=== PATIENT | female | born 1980 | race Caucasian/White ===

== ENCOUNTER → 2020-04-14 07:32 | Outpatient (CLI) | payer BC, SELFPAY ==
[2020-04-14 06:29] VITALS: BMI 19.6
[2020-04-14 09:14] LABS: Rheumatoid Factor < 10.0 IU/mL (<15)
[2020-04-15 17:27] LABS: ANTINUCLEAR ANTIBODIES DIRECT Negative (Negative)
== END ==
PROVIDERS: PCP Family Medicine; Referring Provider Internal Medicine Critical Care Medicine; Visit Provider Internal Medicine Critical Care Medicine
DX: R09.1 Pleurisy (principal); R91.1 Solitary pulmonary nodule
CPT/HCPCS: 36415; 86038; 86200; 86225; 86235; 86431; 87385

== ENCOUNTER 2024-02-01 07:52 | Day surgery (SDC) | payer OTHER, SELFPAY ==
--- NOTE | 2024-01-29 17:21 | PCM.HP.BLA ---
History and Physical Date of Admission: 02/01/24 HPI: The patient is a 43 year old female presenting for pre-operative visit. She is scheduled for hysteroscopy with endometrial ablation, for menorrhagia on 02/01/24. Procedure discussed along with risks, benefits and complications. Other alternatives discussed for management. Consent form signed? Yes. PAST MEDICAL HISTORY PAST MEDICAL HISTORY Diagnosis Date ? Hemorrhage of gastrointestinal tract, unspecified ? Internal hemorrhoids without mention of complication ? PMH - PAST MEDICAL HISTORY OF RECTAL PAIN AND BLEEDING ? Scoliosis ? Unspecified asthma(493.90) exercise induced, never used any medication prescribed PAST SURGICAL HISTORY PAST SURGICAL HISTORY Procedure Laterality Date ? ABDOMINOPLASTY 2008 ? BREAST AUGMENTATION W/PROSTHETIC IMPLANT 2008 ? BUNIONECTOMY, [place]-TYPE 12/2014 left foot ? ESOPHAGEAL DILATATION 04/21 ? SIGMOIDOSCOPY FLX DX W/COLLJ SPEC BR/WA IF PFRMD 01/22/07 CURRENT MEDICATIONS Current Outpatient Medications Medication Sig Dispense Refill ? progesterone micronized (PROMETRIUM) 200 mg capsule Take 1 capsule by mouth daily at bedtime. 14 capsule 1 ? fluconazole (DIFLUCAN) 150 mg tablet Take 1 tablet by mouth as directed. use one tablet, repeat in 4 days if needed to treat a vaginal yeast infection. 2 tablet 1 ? pantoprazole DR (PROTONIX) 20 mg tablet ? Olopatadine 0.2 % drop INSTILL ONE DROP IN EACH EYE ONCE A DAY NEEDED 4 ? FEXOFENADINE HCL (LAWANDA ORAL) Take by mouth. No current facility-administered medications for this visit. ALLERGIES: Anaprox [Naproxen Sodium] PERSONAL HISTORY: SOCIAL HISTORY Social History Tobacco Use ? Smoking status: Some Days Years: 12 Types: Cigarettes ? Smokeless tobacco: Never Vaping Use ? Vaping Use: Never used Substance Use Topics ? Alcohol use: Yes Comment: OCCASIONALLY, NOT WHILE ? Drug use: No FAMILY HISTORY: FAMILY HISTORY FAMILY HISTORY Problem Relation Age of Onset ? Skin Cancer Mother ? Hypertension Mother ? Emphysema Maternal Grandfather ? Diabetes Maternal Aunt ? Seizures Maternal Aunt ? Breast Cancer Maternal Aunt ? Hypertension Maternal Uncle ? Breast Cancer Other MGGM REVIEW OF SYMPTOMS: GENERAL: denies fevers or chills ENDOCRINOLOGY: has not been on steroids Cardiology : denies palpitations or chest pain Respiratory: denies SOB or cough Hematology: denies history of prolonged bleeding or easy bruising or VTE Allergy: Denies history of personal or family history of allergy to anesthesia PHYSICAL EXAMINATION: VITALS: Blood pressure 126/74, pulse 95, resp. rate 16, height 177.8 cm (5' 10), weight 64.4 kg (142 lb), last menstrual period 01/15/2024, SpO2 98%. GENERAL: The patient is well nourished, well hydrated in no acute distress. , The patient is oriented to time, place, and person. LUNGS: Clear to auscultation bilaterally. no wheezes, rhonchi or rales HEART: Regular rate and rhythm, Normal heart sounds, and No murmurs or gallops IMPRESSION: menorrhagia PLAN: The risks/benefits/alternatives and personal involved for the planned hysteroscopy with endometrial ablation were reviewed with the patient. Her questions were answered to her satisfaction and she desires to proceed. Consent was signed. I reviewed with her postop instructions and expectations. Reviewed risks associated w/ after ablation and that it is NOT contraception. She is aware. Plans vasectomy for contraception, another method until then I have reviewed and updated past medical and surgical history, medications and allergies Assessment & Plan Assessment/Plan (1) Menorrhagia: (2) Septate uterus:
[2024-02-01] VITALS (12 sets, daily range): BP systolic 111–132; BP diastolic 68–100; PULSE 75–83; RESP 16; TEMP 36.5–37.2; O2SAT 92–100; BMI 20.7
--- NOTE | 2024-02-01 | EMB_PTH ---
PATIENT: DWAYNE ALDRICH LOC: [facility] – [place] U#:[id number] AGE/SX: 43/F ROOM: RE02/01/[address]: Dr. Jelena Guzman MD : 1980 BED: DIS: 02/01/2024 SPEC #: [id number] RECD: 02/01/24 12:17 STATUS: MIRA CEE #: [id number] DBEORAH: 02/01/24 00:[address]: Jelena Guzman DEPT: SURGICAL PATHOLOGY RECD BY: Ollie Matson ENTERED: 02/01/24 12:18 SP TYPE: ENDOM BX/C DONNA DR: Dr. Willi House MD Tissues: Endometrium, NOS Procedures: Surgery Specimen Level IV HEADER OPERATION: Hysteroscopy, D&C, hydroablation, HTA device PRE-OP DIAGNOSIS: Menorrhagia, septate uterus TISSUE SUBMITTED: Endometrial curettings MICROSCOPIC DIAGNOSIS Endometrium, curettings: Disordered proliferative endometrium with focal glandular breakdown. AM/mr 02/02/2024 MICROSCOPIC DESCRIPTION Slides are reviewed. GROSS DESCRIPTION Received in fixative is one container labeled with the patient's name and designated Endometrial curettings. The specimen consists of multiple irregular fragments of light matta soft tissue that in aggregate measure 2.5 x 2.0 x 0.2 cm. The specimen is totally submitted in one cassette. / 02/01/2024 TC:5 CPT:65703
--- NOTE | 2024-02-01 08:17 | PCM.PRE.AN2 ---
ASA Classification* ASA Classification ASA Classification: 2 Assessment & Plan Anesthesia* Anesthesia Assessment Anesthesia Assessment: Discussed sedation and/or anesthesia options, risks, benefits, and alternatives with patient/parents/legal guardian/POA. Questions invited. The patient/parents/legal guardian/POA seems to understand and agrees to proceed with anesthesia plan. Reviewed the physical assessment, medical history, allergy history and patient home medications list prior to surgery/procedure/anesthetic and documented any changes. Performed airway and anesthesia risk assessments. 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 When Was Last Pacemaker Check QUESTION #4 FULL TEXT: You/Your Family Experience fever (hyperthermia) with Anesthesia Last Oral Intake Last Oral intake: Last Oral Intake NPO since Meds taken in AM with sips of water? Meds patient instructed to take am of surgery PONV PONV - aircraft armorer: PONV - aircraft armorer Female Yes 01/30/24 09:25 HX of Motion Sickness No 01/30/24 09:25 HX of N/V After Surgery No 01/30/24 09:25 Non-Smoker No 01/30/24 09:25 Duration of Surgery greater No 01/30/24 09:25 than 60 minutes Number of Risk Factors 1 01/30/24 09:25 PONV Score Low Risk 01/30/24 09:25 Height & Weight Height & Weight: Anesthesia: Height & Weight Weight: 64.41 kg 01/31/24 07:46 Respiratory Assessment Respiratory Assessment - aircraft armorer: Respiratory Tract Infection Hx - aircraft armorer Hx Respiratory Tract Infection No 01/30/24 09:25 STOP Sleep Apnea STOP Sleep Apnea - aircraft armorer: STOP Sleep Apnea - aircraft armorer Hx Hypertension No 01/30/24 09:25 Hx Sleep Apnea No 01/30/24 09:25 CPAP BIPAP Do you snore loudly (louder Yes 01/30/24 09:25 than talking or can be heard Do you often feel tired/ No 01/30/24 09:25 fatigued/ sleepy during daytime? Has anyone observed you stop No 01/30/24 09:25 breathing during sleep? STOP Results Negative 01/30/24 09:25 QUESTION #5 FULL TEXT : Do you snore loudly (louder than talking or can be heard through closed doors)? 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 Specify any problems Hx of Preganancy in last 3 No 01/30/24 09:25 Months Nurse Filling Out Transfusion DSCHRIBER 01/30/24 09:25 & Questions: Date: 01/30/24 01/30/24 09:25 Time: 09:26 01/30/24 09:25 Patient unable to answer at this time (ie. confused, unrespo /Reproduction History /Reproductive History - aircraft armorer: /Reproductive Hx- aircraft armorer Hx Now No 01/30/24 09:25 Gestational Age (in weeks): EDC: Hx Hx Para Hx Section SAB No 01/30/24 09:25 Active Medications Active Medications: Current Medications Generic Name Dose Route Start Last Admin Trade Name Freq PRN Reason Stop Dose Admin Acetaminophen 1,000 mg 02/01/24 09:35 Acetaminophen 500 Mg Tablet PO 02/01/24 09:36 PREOP ONE Ketorolac Tromethamine 30 mg 02/01/24 09:35 Ketorolac 30 Mg/Ml Syringe IV 02/01/24 09:36 PREOP ONE Anesthesia Focused Assessment* Airway Assessment Mouth opens: >3 cm Mallampati Score: II Focused Labs Anesthesia Preop lab: CBC CHEMISTRY COAG Review of Systems (Anesthesia) ROS Narrative System reviewed and no additional complaints, except as documented. [facility] Medical History Alcohol use History of steroid therapy Anemia DVT (deep venous thrombosis) Gastric reflux Smoker Anxiety Insomnia Pleuritis Home Medications ?Medication ?Instructions ?Recorded ?Last Taken ?Type montelukast 10 mg tablet 10 mg PO QHS 01/30/24 Unknown History pantoprazole 20 mg tablet,delayed 40 mg PO QDAY 01/30/24 Unknown History release Allergy/AdvReac Type Severity Reaction Status Date / Time naproxen Allergy unknown Verified 01/30/24 09:23 Family History Grandfather Cancer Liver Surgical History Hx of thumb surgery hx neuroma excision H/O toe surgery History of bunionectomy H/O breast augmentation Social History Smoking Status: Current every day smoker tobacco type: cigarettes Tobacco: How many years used: 24 alcohol intake: current alcohol intake frequency: holidays/special occasions only
[2024-02-01 08:39] LABS: Internal QC Validated? YES +Cl - CLEAR BKGD; Pregnancy, Urine Negative Negative; Record Kit Lot#,Urine Preg 772476
[2024-02-01] MEDS: Lactated Ringers 1,000 ML 15 ML IV (08:43)
[2024-02-01] MEDS: Acetaminophen 500 MG Tablet 1000 MG PO (08:44)
[2024-02-01] MEDS: Ketorolac 30 MG/ML Syringe IV (08:44)
[2024-02-01 09:04] LABS: Hemoglobin 8.6 g/dL (12.0-15.0); Mean Corp Hgb Conc 29.7 g/dL (32-36); Mean Corpuscular Hgb 23.8 pg (27.0-32.0); Mean Corpuscular Volume 80.3 fL (81-99); Mean Platelet Vol. 10.9 fl (6.2-12.0); Platelet Count 287 K/mm3 (150-450); RBC Distribution Width CV 17.2 % (11.6-14.6); RBC Distribution Width SD 49.8 fl (35.1-43.9); Red Blood Count 3.61 M/mm3 (4.2-5.4); White Blood Count 5.1 K/mm3 (4.4-11.0)
--- NOTE | 2024-02-01 09:53 | PCM.DC ---
Discharge Instructions Diet Discharge Diet: No restrictions Activity Discharge Activity: May Drive (02/02/24) and May Shower May resume sexual activity in: 1-2 weeks and 2 weeks Lifting Restrictions: none Dressing / Incision Call your doctor if your incision/area has: Sudden Increased Bleeding and Foul Smelling Discharge Call your doctor if you observe: Fever of 101 or Higher and Using more than 1 pad per hour (for 2 hrs in a row) Follow Up Care Please Follow Up With: Jelena Guzman MD When: as needed. Call [phone] or send a [employer] message to make an appointment or with any concerns. Test Results: Test results from this visit will be discussed in further detail at your follow-up appointment, if applicable. Discharge Plan Admission Attending Provider: Jelena Guzman Primary Care Provider: Willi House Instructions Print Language: Persian Discharge Orders/Prescriptions Prescriptions: No Action montelukast 10 mg tablet 10 mg PO QHS pantoprazole 20 mg tablet,delayed release (DR/EC) 40 mg PO QDAY Referrals / Follow Up: Willi House MD [Primary Care Provider] - Disposition Disposition (needs filled in before D/C Order can be placed): Home, Self Care
--- NOTE | 2024-02-01 09:56 | OP.PCM_ITS ---
Problems Associated Problem List Diagnoses (1) Septate uterus: (2) Menorrhagia: Report of Operation Date of Procedure: 02/01/24 Pre-Operative Diagnosis: menorrhagia Post-Operative Diagnosis: same Surgery/Procedure Performed:: Hysteroscopy D&C with endometrial ablation Description of Surgical Findings:: Normal cervix and vagina. Retroverted uterus. Lush endometrium. No focal endometrial abnormalities. Surgeon: rocky industrial engineering technician: None Type of Anesthesia: MAC/Supplemental/Local Anesthesiologist: Paige Dexter Special Medications: none Specimen's removed: endoemtrial curettings Drains: none Estimated Blood Loss (mL): 10 Fluids Replaced: 1000 mL Description of Procedure: The patient was taken to the OR where she was prepped and draped in dorsal lithotomy position. The weighted speculum was placed in the vagina and the anterior lip of the cervix was grasped with a single-tooth tenaculum. A paracervical block was administered with [1% lidocaine with 1-100,000 epinephrine solution]. The cervix was dilated serially with Hegar dilators. The HTA hysteroscope was placed into the uterine cavity and the above findings were noted. Bilateral tubal ostia [were] identified. The uterus sounded to [9]cm and the cervical length was [4]cm. The endometrial cavity length was [5]cm. The hysteroscope was removed. [A gentle sharp curettage was done of the uterine cavity. The specimen was handed off and sent to pathology.] The hydrothermal endometrial ablation device seated in the cervix to the level of the internal os and then pulled back several millimeters. The cervical seal balloon was inflated and safety cycle and cervical seal was confirmed by the HTA device. The tenaculum lock was placed. I could visualize the cervix and a wet sponge was placed in the posterior cul-de-sac. There is no leaking from the device or from the cervix. The ablation procedure was initiated and completed without interruption. The cooldown cycle was then completed without interruption. The entire cavity was white. The device was removed. The tenaculum was removed and the tenaculum site was noted to be hemostatic. All sponge and needle counts were correct. A vaginal sweep was performed by me. The patient was awakened and taken to the recovery room in stable condition. Hysteroscopic fluid deficit was 10 cc of normal saline. Grafts/Implants Used: none Procedure Start Time: 10:00 Procedure Stop Time: 10:24 Complications none Admit VTE Documentation VTE Present on Admission: No VTE Mechan Device Prophylaxis: SCD's VTE Pharm Prophylaxis ordered?: No Reason prophylaxis not ordered:: Procedure Not Indicated
[2024-02-01] MEDS: Lidocaine 1% /Epi 1:100 (20ml) 20 ML Vial (10:00)
--- NOTE | 2024-02-01 10:33 | PCM.POST.ANE ---
Anesthesia: Postop Eval I Current Vital Signs Temperature: 97.7 F Pulse Rate: 83 Blood Pressure: 111/75 Respiratory Rate: 16 Pulse Ox: 99 Oxygen Delivery Method: Room Air Assessment Airway patent: Yes Spontaneous unlabored respirations: Yes Mental status: Awake and Calm nausea: No Vomiting: No Anesthesia Complication: No Fluid Hydration Crystalloid volume administer (ml): 1,000 Total IV fluid infused: 1,000 Progress Note Anesthesia document: Postop Eval 1 completed: Yes
[2024-02-01] MEDS: HYDROmorphone 1 MG/ML Syringe IV (11:56)
[2024-02-01] MEDS: Lactated Ringers 1,000 ML 75 ML IV (12:14)
[2024-02-01] MEDS: Ketorolac 30 MG/ML Syringe IM (12:14)
[2024-02-01] MEDS: oxyCODONE 5 MG Tablet PO (12:47)
--- NOTE | 2024-02-01 13:17 | POSTOPAN2_ITS ---
Anesthesia Postop Eval I Sum Postop Eval Completion status Anesthesia document: Postop Eval 1 completed: Yes Anesthesia Postop Eval I Summary Anesthesia Postop Eval I Summary: Anesthesia Postop Eval I: Assessment Summary Airway patent Yes 02/01/24 10:34 MEETING MANAGER.GDOTT Spontaneous unlabored Yes 02/01/24 10:34 MEETING MANAGER.GDOTT respirations Mental status Awake,Calm 02/01/24 10:34 MEETING MANAGER.GDOTT nausea No 02/01/24 10:34 MEETING MANAGER.GDOTT Vomiting No 02/01/24 10:34 MEETING MANAGER.GDOTT Anesthesia Postop Eval I: Fluid Summary Crystalloid volume administer 1,000 02/01/24 10:34 MEETING MANAGER.GDOTT (ml) Colloids volume administered ( ml) Blood Product volume administered (ml) Total IV fluid infused 1,000 02/01/24 10:34 MEETING MANAGER.GDOTT Anesthesia Postop Eval I: Summary Notes Anesthesia Complication No 02/01/24 10:34 MEETING MANAGER.GDOTT Anesthesia Complication Comment: Post-operative progress note Anesthesia: Postop Eval II Evaluation Mental status: Awake Pain Level: 0 nausea: No Vomiting: No Complications Anesthesia Complication: No
--- NOTE | 2024-02-01 13:17 | PCM.POSTANE2 ---
Anesthesia Postop Eval I Sum Postop Eval Completion status Anesthesia document: Postop Eval 1 completed: Yes Anesthesia Postop Eval I Summary Anesthesia Postop Eval I Summary: Anesthesia Postop Eval I: Assessment Summary Airway patent Yes 02/01/24 10:34 PLASTIC AND RECONSTRUCTIVE SURGEON.GDOTT Spontaneous unlabored Yes 02/01/24 10:34 PLASTIC AND RECONSTRUCTIVE SURGEON.GDOTT respirations Mental status Awake,Calm 02/01/24 10:34 PLASTIC AND RECONSTRUCTIVE SURGEON.GDOTT nausea No 02/01/24 10:34 PLASTIC AND RECONSTRUCTIVE SURGEON.GDOTT Vomiting No 02/01/24 10:34 PLASTIC AND RECONSTRUCTIVE SURGEON.GDOTT Anesthesia Postop Eval I: Fluid Summary Crystalloid volume administer 1,000 02/01/24 10:34 PLASTIC AND RECONSTRUCTIVE SURGEON.GDOTT (ml) Colloids volume administered ( ml) Blood Product volume administered (ml) Total IV fluid infused 1,000 02/01/24 10:34 PLASTIC AND RECONSTRUCTIVE SURGEON.GDOTT Anesthesia Postop Eval I: Summary Notes Anesthesia Complication No 02/01/24 10:34 PLASTIC AND RECONSTRUCTIVE SURGEON.GDOTT Anesthesia Complication Comment: Post-operative progress note Anesthesia: Postop Eval II Evaluation Mental status: Awake Pain Level: 0 nausea: No Vomiting: No Complications Anesthesia Complication: No
== END 2024-02-01 13:03 | disposition home or self-care (01) ==
LOC: SDC 07:57 → AC 07:58
PROVIDERS: Anesthesiology; PCP Family Medicine; Referring Provider Obstetrics & Gynecology; Visit Provider Obstetrics & Gynecology
PROC: 0U5B8ZZ Destruction of Endometrium, Via Natural or Artificial Opening Endoscopic (ICD-10-PCS; CPT 58563; principal; 2024-02-01 09:20)
DX: N92.0 Excessive and frequent menstruation with regular cycle (principal); Q51.28 Other and unspecified doubling of uterus; F17.210 Nicotine dependence, cigarettes, uncomplicated; K21.9 Gastro-esophageal reflux disease without esophagitis; Z79.899 Other long term (current) drug therapy
CPT/HCPCS: 58563; 00952; 81025; 85027; 88305; J7120; J2405

== ENCOUNTER → 2024-08-21 | Outpatient (CLI) | payer OTHER, SELFPAY ==
[2024-08-21 12:14] LABS: Protein, Urine (Random) 6.3 mg/dL (<11.9); Protein:Creat Ratio 81 mg/g CRE (0-200)
[2024-08-21 12:37] LABS: Color, Urine Yellow (Yellow); Glucose, Dipstick Normal (Normal); Ketone-Dipstick Negative (Negative); Leukocyte Esterase-Dipstick Negative /ul (Negative); Nitrite-Dipstick Negative (Negative); Occult Blood-Urine 10 /ul (Negative); Protein-Dipstick Negative (Negative); Specific Gravity, Urine 1.015 (1.002-1.030); Urine Bilirubin Dipstick Negative (Negative); Urine Clarity Clear (Clear); Urine Urobilinogen Normal (Normal)
[2024-08-21 12:53] LABS: Erythrocyte Sedimentation Rate 2 mm/hr (0-30)
[2024-08-21 12:58] LABS: Absolute Lymphocyte Count 2.02 X10^3/uL (0.83-4.51); Basophil# 0.05 X10^3/uL; Basophil% 0.7 % (0-1); Eosinophil# 0.56 X10^3/uL; Eosinophils% 7.8 % (0-5); Hematocrit 38.5 % (37-47); Hemoglobin 11.9 g/dL (12.0-15.0); Lymphocyte # 2.02 X10^3/ul (0.83-4.51); Lymphocyte % 28.3 % (19-41); Mean Corp Hgb Conc 30.9 g/dL (32-36); Mean Corpuscular Hgb 26.7 pg (27.0-32.0); Mean Corpuscular Volume 86.3 fL (81-99); Mean Platelet Vol. 11.3 fl (6.2-12.0); NRBC Flagged by Analyzer 0 % (0-5); Neutrophil % 55.9 % (47-70); Platelet Count 276 K/mm3 (150-450); RBC Distribution Width CV 18.7 % (11.6-14.6); RBC Distribution Width SD 59.2 fl (35.1-43.9); Red Blood Count 4.46 M/mm3 (4.2-5.4); White Blood Count 7.2 K/mm3 (4.4-11.0)
[2024-08-21 13:12] LABS: Hepatitis B Surface Antibody Non-Reactive; Hepatitis B Surface Antigen Non-Reactive (Nonreactive); Hepatitis C Antibody Non-Reactive (Nonreactive)
[2024-08-21 17:34] LABS: ALB/GLOB Ratio 1.2 RATIO (0.9-2.4); AST(SGOT) 27 U/L (15-37); Alanine Aminotransfer ALT/SGPT 24 U/L (13-56); Albumin, Serum 3.8 g/dL (3.2-5.0); Alkaline Phosphatase 55 U/L (45-117); Anion Gap 7 (5-15); BUN 9 mg/dL (7-18); BUN/Creat Ratio 12.7 RATIO (10-20); CRP < 2.90 mg/L (0.0-3.0); Chloride 104 mmol/L (98-107); Creatinine, Serum 0.71 mg/dL (0.55-1.02); EST Glomerular Filtration Rate 95 mL/min (>60); Est Glom Filt Rate - Afr Amer 115 mL/min (>60); Globulin 3.3 g/dL (2.2-4.2); Glucose 104 mg/dL (74-106); Potassium 3.4 mmol/L (3.5-5.1); Protein, Total 7.1 g/dL (6.4-8.2); Rheumatoid Factor < 10.0 IU/mL (<15); Sodium Level 138 mmol/L (136-145)
[2024-08-22 10:08] LABS: ANTINUCLEAR ANTIBODIES DIRECT Negative (Negative); SJOGREN'S Anti-SS-A test < 0.2 AI (0.0-0.9); SJOGREN'S Anti-SS-B test < 0.2 AI (0.0-0.9)
[2024-08-22 13:07] LABS: CCP IgG Antibodies 1 units (0-19)
== END | disposition home or self-care (01) ==
LOC: MTLAB 10:03
PROVIDERS: PCP Family Medicine; Referring Provider Internal Medicine Rheumatology; Visit Provider Internal Medicine Rheumatology
DX: M06.4 Inflammatory polyarthropathy (principal); M35.00 Sjogren syndrome, unspecified
CPT/HCPCS: 36415; 80053; 81002; 82570; 84156; 85025; 85652; 86038; 86140; 86200; 86235; 86431; 86706; 86803; 87340

== ENCOUNTER → 2025-02-11 | Outpatient (CLI) | payer OTHER, SELFPAY ==
[2025-02-11 18:14] LABS: AST(SGOT) 22 U/L (<=31); Alanine Aminotransfer ALT/SGPT 14 U/L (<=34); Albumin, Serum 4.2 g/dL (3.5-5.0); Alkaline Phosphatase 64 U/L (35-104); Anion Gap 10 (5-15); BUN 12 mg/dL (4-19); BUN/Creat Ratio 16.4 RATIO (10-20); Calcium,Total 8.8 mg/dL (7.6-11.0); Carbon Dioxide 26.3 mmol/L (21.0-32.0); Chloride 101 mmol/L (98-108); Globulin 2.0 g/dL (2.2-4.2); Glucose 137 mg/dL (70-99); Potassium 3.8 mmol/L (3.3-5.1)
[2025-02-11 18:28] LABS: Hematocrit 34.9 % (37-47); Hemoglobin 11.2 g/dL (12.0-15.0); Immature Granulocytes Count 0.020 X10^3/uL (0.0-0.0); Mean Corp Hgb Conc 32.1 g/dL (32-36); Mean Corpuscular Volume 90.2 fL (81-99); Mean Platelet Vol. 11.6 fl (6.2-12.0); NRBC Flagged by Analyzer 0 % (0-5); Platelet Count 256 K/mm3 (150-450); RBC Distribution Width CV 16.3 % (11.6-14.6); RBC Distribution Width SD 53.9 fl (35.1-43.9); Red Blood Count 3.87 M/mm3 (4.2-5.4); White Blood Count 8.6 K/mm3 (4.4-11.0)
== END | disposition home or self-care (01) ==
LOC: MTLAB 16:32
PROVIDERS: PCP Family Medicine; Referring Provider Internal Medicine Rheumatology; Visit Provider Internal Medicine Rheumatology
DX: M06.4 Inflammatory polyarthropathy (principal); Z79.899 Other long term (current) drug therapy; M35.00 Sjogren syndrome, unspecified; K58.2 Mixed irritable bowel syndrome
CPT/HCPCS: 36415; 80053; 85025

== ENCOUNTER → 2025-07-29 | Outpatient (CLI) | payer OTHER, SELFPAY ==
[2025-07-29 17:50] LABS: Hematocrit 36.0 % (37-47); Hemoglobin 11.8 g/dL (12.0-15.0); Immature Granulocytes Count 0.020 X10^3/uL (0.0-0.0); Mean Corp Hgb Conc 32.8 g/dL (32-36); Mean Corpuscular Volume 93.3 fL (81-99); Mean Platelet Vol. 10.9 fl (6.2-12.0); NRBC Flagged by Analyzer 0 % (0-5); Platelet Count 234 K/mm3 (150-450); RBC Distribution Width CV 13.6 % (11.6-14.6); RBC Distribution Width SD 46.2 fl (35.1-43.9); Red Blood Count 3.86 M/mm3 (4.2-5.4); White Blood Count 7.1 K/mm3 (4.4-11.0)
[2025-07-29 18:05] LABS: AST(SGOT) 21 U/L (<=31); Alanine Aminotransfer ALT/SGPT 17 U/L (<=34); Albumin, Serum 4.3 g/dL (3.5-5.0); Alkaline Phosphatase 65 U/L (35-104); Anion Gap 9 (5-15); BUN 13 mg/dL (4-19); BUN/Creat Ratio 17.3 RATIO (10-20); Calcium,Total 9.4 mg/dL (7.6-11.0); Carbon Dioxide 26.1 mmol/L (21.0-32.0); Chloride 103 mmol/L (98-108); Globulin 2.3 g/dL (2.2-4.2); Glucose 115 mg/dL (70-99); Potassium 4.0 mmol/L (3.3-5.1)
== END | disposition home or self-care (01) ==
PROVIDERS: PCP Family Medicine; Referring Provider Internal Medicine Rheumatology; Visit Provider Internal Medicine Rheumatology
DX: M06.4 Inflammatory polyarthropathy (principal); Z79.899 Other long term (current) drug therapy
CPT/HCPCS: 36415; 80053; 85025